=== PATIENT | female | born 1955 | race Two or more races ===

== ENCOUNTER 2020-04-09 20:55 | Emergency (ER) | payer MEDICARE, OTHER ==
[~2020-04-09] VITALS: Ht 149.9 cm; Wt 63.5 kg
[2020-04-09] MEDS ORDERED: KETOROLAC TROMETH 60MG/2ML VIAL IM ONE (21:30)
[2020-04-09] MEDS ORDERED: HYDROcodone-ACET 7.5/325MG TAB PO ONE (21:30)
[2020-04-09 21:40] LABS: Urine Bacteria MANY /hpf (None Seen); Urine Blood 1+ /uL (Negative); Urine Mucus FEW (None Seen); Urine Specific Gravity 1.019 (1.001-1.035); Urine WBC 51 /hpf (0 - 5)
[2020-04-09 22:47] LABS: Basophils # (auto) 0 10 ^3/uL (0-0.2); Basophils % (auto) 0.3 % (0.0-2.0); Eosinophils # (auto) 0.1 10 ^3/uL (0-0.8); Eosinophils % (auto) 0.8 % (0.0-7.0); Hematocrit 36.4 % (36.0-46.0); Hemoglobin 12.4 g/dL (12.2-16.2); Lymphocytes # (auto) 1.1 10 ^3/uL (0.4-5.4); Lymphocytes % (auto) 12.7 % (10.0-50.0); Mean Corpuscular Hgb Conc. 34.1 g/dL (32.0-36.0); Mean Corpuscular Volume 93.8 fL (80.0-100.0); Monocytes # (auto) 1.1 10 ^3/uL (0-1.3); Monocytes % (auto) 12.6 % (0.0-12.0); Neutrophils # (auto) 6.4 10 ^3/uL (1.6-8.6); Neutrophils % (auto) 73.6 % (37.0-80.0); Red Blood Cells 3.88 10^6/uL (4.0-5.20); Red Cell Distribution Width 13.5 % (11.8-14.3); White Blood Cell 8.7 10^3/uL (4.4-10.8)
[2020-04-09 23:03] LABS: Alanine Aminotransferase 59 U/L (13-56); Amylase 28 U/L (25-115); Anion Gap 8 (5-15); Aspartate Aminotransferase 31 U/L (15-37); BUN/Creatinine Ratio 19.1; Blood Urea Nitrogen 17 mg/dL (7-18); Calcium 8.6 mg/dL (8.5-10.1); Carbon Dioxide 25 mmol/L (21-32); Chloride 103 mmol/L (98-107); GFR African American 82 mL/min; GFR Non-African American 68 mL/min; Glucose 129 mg/dL (74-106); Lipase 83 U/L (73-393); Potassium 3.5 mmol/L (3.5-5.1); Sodium 136 mmol/L (136-145)
[2020-04-09 23:05] LABS: INR 1.04 (0.9-1.15); Partial Thromboplastin Time 30.6 sec (23.0-31.2)
[2020-04-09 23:11] LABS: Alkaline Phosphatase 153 U/L (45-117); Bilirubin, Total 0.4 mg/dL (0.2-1.0); Total Protein 6.9 g/dL (6.4-8.2)
[2020-04-09 23:40] VITALS: BP 112/68
[2020-04-09] MEDS ORDERED: levoFLOXacin 250 MG TAB PO ONE (23:45)
== END 2020-04-10 00:08 | disposition home or self-care (01) ==
LOC: ER 20:57
DX: N39.0 Urinary tract infection, site not specified (principal); Z20.822 Contact with and (suspected) exposure to COVID-19
CPT/HCPCS: 36415; 71045; 80053; 81001; 82150; 83690; 83880; 84484; 85025; 85610; 85730; 86141; 87426; 93005; 96372; 99285; J1885

== ENCOUNTER 2021-07-04 04:00 | Emergency (ER) | payer MEDICARE, OTHER ==
[~2021-07-04] VITALS: Ht 149.9 cm; Wt 72.6 kg
[2021-07-04 05:18] LABS: Basophils # (auto) 0 10 ^3/uL (0-0.2); Basophils % (auto) 0.8 % (0.0-2.0); Eosinophils # (auto) 0.1 10 ^3/uL (0-0.8); Eosinophils % (auto) 2.1 % (0.0-7.0); Hematocrit 41.9 % (36.0-46.0); Hemoglobin 14.3 g/dL (12.2-16.2); Lymphocytes # (auto) 1.5 10 ^3/uL (0.4-5.4); Lymphocytes % (auto) 25.7 % (10.0-50.0); Mean Corpuscular Hemoglobin 31.6 pg (28.0-32.0); Mean Corpuscular Volume 92.9 fL (80.0-100.0); Monocytes # (auto) 0.5 10 ^3/uL (0-1.3); Monocytes % (auto) 8.6 % (0.0-12.0); Neutrophils # (auto) 3.6 10 ^3/uL (1.6-8.6); Neutrophils % (auto) 62.8 % (37.0-80.0); Red Blood Cells 4.51 10^6/uL (4.0-5.20); Red Cell Distribution Width 13.7 % (11.8-14.3); White Blood Cell 5.7 10^3/uL (4.4-10.8)
[2021-07-04 05:23] LABS: Albumin 3.7 g/dL (3.4-5.0); Calcium 9.8 mg/dL (8.5-10.1); Potassium 4.4 mmol/L (3.5-5.1)
[2021-07-04 05:25] LABS: BUN/Creatinine Ratio 24.7
[2021-07-04 05:26] LABS: Bilirubin, Total 0.3 mg/dL (0.2-1.0)
[2021-07-04 05:26] LABS: Urine Amorphous Crystal FEW /hpf (None Seen); Urine Bacteria FEW /hpf (None Seen); Urine Blood Negative /uL (Negative); Urine Mucus FEW (None Seen); Urine Specific Gravity 1.017 (1.001-1.035); Urine WBC 5 /hpf (0 - 5)
[2021-07-04] MEDS ORDERED: NITR-87 PO (06:49)
[2021-07-04] MEDS ORDERED: NITROFURANTOIN 100 mg CAP PO ONE (07:00)
[2021-07-04 08:52] VITALS: BP 162/97
== END 2021-07-04 09:00 | disposition home or self-care (01) ==
LOC: ER 04:00
DX: N39.0 Urinary tract infection, site not specified (principal); F17.210 Nicotine dependence, cigarettes, uncomplicated; E03.9 Hypothyroidism, unspecified; Z90.710 Acquired absence of both cervix and uterus; Z90.89 Acquired absence of other organs; Z79.899 Other long term (current) drug therapy
CPT/HCPCS: 36415; 74176; 80053; 81001; 83690; 84484; 85025; 93005

== ENCOUNTER 2021-07-14 20:15 | Inpatient (IN) | payer OTHER ==
[~2021-07-14] VITALS: Ht 149.9 cm; Wt 65.6 kg
[~2021-07-14 20:15] MED LIST: NITR-87 PO
[2021-07-14] MEDS ORDERED: HYDROcodone-ACET 5/325MG TAB PO ONE (23:45)
[2021-07-15] MEDS ORDERED: PIPERACILLIN-TAZOB 3.375GM 100 ML IV ONE (00:30)
[2021-07-15] MEDS ORDERED: DexAMETHasone SOD PHOS 10MG/1ML VIAL INJ IV ONE (00:30)
[2021-07-15 01:06] LABS: Basophils # (auto) 0 10 ^3/uL (0-0.2); Eosinophils # (auto) 0.1 10 ^3/uL (0-0.8); Lymphocytes # (auto) 0.3 10 ^3/uL (0.4-5.4); Lymphocytes % (auto) 4.6 % (10.0-50.0); Mean Corpuscular Volume 94.4 fL (80.0-100.0); Neutrophils # (auto) 4.9 10 ^3/uL (1.6-8.6)
[2021-07-15 01:21] LABS: Albumin 3.5 g/dL (3.4-5.0); BUN/Creatinine Ratio 24.1; Basophils % (auto) 0.7 % (0.0-2.0); Calcium 8.6 mg/dL (8.5-10.1); Eosinophils % (auto) 1.3 % (0.0-7.0); Hematocrit 39.3 % (36.0-46.0); Hemoglobin 13.1 g/dL (12.2-16.2); Mean Corpuscular Hemoglobin 31.5 pg (28.0-32.0); Mean Corpuscular Hgb Conc. 33.4 g/dL (32.0-36.0); Monocytes # (auto) 0.6 10 ^3/uL (0-1.3); Monocytes % (auto) 10.1 % (0.0-12.0); Neutrophils % (auto) 83.3 % (37.0-80.0); Potassium 4.1 mmol/L (3.5-5.1); Red Blood Cells 4.16 10^6/uL (4.0-5.20); Red Cell Distribution Width 14.1 % (11.8-14.3); White Blood Cell 5.9 10^3/uL (4.4-10.8)
[2021-07-15 01:23] LABS: Bilirubin, Total 0.2 mg/dL (0.2-1.0); INR 1.05 (0.9-1.15)
[2021-07-15 01:25] LABS: CRP High Sensitivity 0.68 mg/dL (< 0.3)
[2021-07-15] MEDS ORDERED: ALBUTEROL SULF 2.5 MG/0.5ML(0.5%) NEB SOLN NEB PRN (04:45)
[2021-07-15] MEDS ORDERED: ONDANSETRON HCL 4 MG/2 ML VIAL IV PRN (04:45)
[2021-07-15] MEDS ORDERED: SODIUM CHLORIDE 0.9% 1,000 ML IV SCH (04:45)
[2021-07-15] MEDS ORDERED: MORPHINE SULFATE INJ 2 MG/ml SYRG IV PRN (04:45)
[2021-07-15 05:24] LABS: Urine WBC None Seen /hpf (0 - 5)
[2021-07-15 05:49] LABS: Urine Bacteria NONE SEEN /hpf (None Seen); Urine Blood Negative /uL (Negative); Urine Specific Gravity 1.006 (1.001-1.035)
[2021-07-15 08:55] VITALS: BP 143/85
[2021-07-15] MEDS: cefTRIAXone 1GM/50ML D5W 50 ML IV SCH (10:09)
[2021-07-15] MEDS: DexAMETHasone SOD PHOS 10MG/1ML VIAL INJ IV SCH (10:09)
[2021-07-15] MEDS: AZITHROMYCIN 500MG/ 250ML 250 ML IV SCH (10:10)
[2021-07-15] MEDS ORDERED: REMDESIVIR PER PHARMACY 0 ML IV SCH ×2 (14:30→20:00)
[2021-07-15 17:05] VITALS: BP 145/85
[2021-07-15] MEDS ORDERED: REMDESIVIR 200 MG in NS 210ml LOADING DOSE ADULT IV ONE ×2 (17:30→20:00)
[2021-07-15 17:53] VITALS: BP 112/60
[2021-07-15] MEDS: BUDESONIDE (INHALATION) 180 MCG IH IN SCH (19:26)
[2021-07-15] MEDS: ALBUTEROL SULF HFA 90MCG INH 200DOSE IN SCH (19:27)
[2021-07-15 20:00] VITALS: BP 100/60
[2021-07-15] MEDS: ENOXAPARIN SOD 40 MG/0.4 ML SYRINGE SC SCH (21:35)
[2021-07-15 22:00] VITALS: BP 100/60
[2021-07-15] MEDS ORDERED: IPRATROPIUM BROM 0.5 MG/2.5ML INH SOL NEB SCH (22:00)
[2021-07-15] MEDS ORDERED: BUDESONIDE (INHALATION) 0.5 MG/2 ML NEB NEB SCH (22:00)
[2021-07-16 05:00] VITALS: BP 118/58
[2021-07-16] MEDS: ALBUTEROL SULF HFA 90MCG INH 200DOSE IN SCH ×3 (06:48→19:29)
[2021-07-16] MEDS: BUDESONIDE (INHALATION) 180 MCG IH IN SCH ×2 (06:49→19:29)
[2021-07-16 08:00] VITALS: BP 113/58
[2021-07-16 09:27] VITALS: BP 113/58
[2021-07-16] MEDS: cefTRIAXone 1GM/50ML D5W 50 ML IV SCH (09:33)
[2021-07-16] MEDS: AZITHROMYCIN 500MG/ 250ML 250 ML IV SCH (09:33)
[2021-07-16] MEDS: ENOXAPARIN SOD 40 MG/0.4 ML SYRINGE SC SCH ×2 (09:33→22:38)
[2021-07-16] MEDS: DexAMETHasone SOD PHOS 10MG/1ML VIAL INJ IV SCH (09:33)
[2021-07-16 12:27] LABS: Basophils # (auto) 0.1 10 ^3/uL (0-0.2); Basophils % (auto) 1.2 % (0.0-2.0); Eosinophils # (auto) 0 10 ^3/uL (0-0.8); Hematocrit 37.4 % (36.0-46.0); Hemoglobin 12.5 g/dL (12.2-16.2); Lymphocytes # (auto) 0.5 10 ^3/uL (0.4-5.4); Lymphocytes % (auto) 9.4 % (10.0-50.0); Mean Corpuscular Hemoglobin 31.5 pg (28.0-32.0); Mean Corpuscular Hgb Conc. 33.4 g/dL (32.0-36.0); Mean Corpuscular Volume 94.2 fL (80.0-100.0); Monocytes # (auto) 0.4 10 ^3/uL (0-1.3); Monocytes % (auto) 8.9 % (0.0-12.0); Neutrophils % (auto) 80.5 % (37.0-80.0); Nucleated Red Blood Cells % 0.3 %; Red Blood Cells 3.97 10^6/uL (4.0-5.20); Red Cell Distribution Width 13.9 % (11.8-14.3)
[2021-07-16 12:46] LABS: Calcium 8.2 mg/dL (8.5-10.1); Potassium 4.2 mmol/L (3.5-5.1)
[2021-07-16 12:48] LABS: BUN/Creatinine Ratio 25.7
[2021-07-16 12:52] LABS: Bilirubin, Total 0.1 mg/dL (0.2-1.0); Total Protein 6.3 g/dL (6.4-8.2)
[2021-07-16 13:00] VITALS: BP 104/59
[2021-07-16] MEDS: REMDESIVIR 100mg 100 MG in SODIUM CHL 0.9% 230 ML IV SCH (16:04)
[2021-07-16 17:00] VITALS: BP 128/69
[2021-07-16] MEDS ORDERED: CALCIUM CARB 500 MG CHEW TAB PO PRN (17:00)
[2021-07-16 22:00] VITALS: BP 109/56
[2021-07-16] MEDS: PANTOPRAZOLE 40 MG/10 ML VIAL INJ IV SCH (22:37)
[2021-07-16] MEDS: SUCRALFATE 1 GM/10 ML ORAL SUSP PO SCH (22:38)
[2021-07-17 05:00] VITALS: BP 95/49
[2021-07-17] MEDS: SUCRALFATE 1 GM/10 ML ORAL SUSP PO SCH ×4 (06:22→22:31)
[2021-07-17] MEDS: ALBUTEROL SULF HFA 90MCG INH 200DOSE IN SCH ×3 (07:20→22:00)
[2021-07-17 09:00] VITALS: BP 130/55
[2021-07-17] MEDS: AZITHROMYCIN 500MG/ 250ML 250 ML IV SCH (11:14)
[2021-07-17] MEDS: DexAMETHasone SOD PHOS 10MG/1ML VIAL INJ IV SCH (11:14)
[2021-07-17] MEDS: cefTRIAXone 1GM/50ML D5W 50 ML IV SCH (11:14)
[2021-07-17] MEDS: PANTOPRAZOLE 40 MG/10 ML VIAL INJ IV SCH ×2 (11:14→22:32)
[2021-07-17] MEDS: ENOXAPARIN SOD 40 MG/0.4 ML SYRINGE SC SCH ×2 (11:15→22:32)
[2021-07-17 13:00] VITALS: BP 114/75
[2021-07-17] MEDS: REMDESIVIR 100mg 100 MG in SODIUM CHL 0.9% 230 ML IV SCH (14:06)
[2021-07-17 17:00] VITALS: BP 117/60
[2021-07-17 22:00] VITALS: BP 133/77
[2021-07-17] MEDS: BUDESONIDE (INHALATION) 180 MCG IH IN SCH (22:00)
[2021-07-18 05:00] VITALS: BP 109/49
[2021-07-18] MEDS: SUCRALFATE 1 GM/10 ML ORAL SUSP PO SCH ×2 (06:23→11:00)
[2021-07-18] MEDS: ALBUTEROL SULF HFA 90MCG INH 200DOSE IN SCH (06:51)
[2021-07-18] MEDS: BUDESONIDE (INHALATION) 180 MCG IH IN SCH (06:51)
[2021-07-18 09:07] VITALS: BP 120/55
[2021-07-18] MEDS: cefTRIAXone 1GM/50ML D5W 50 ML IV SCH (09:12)
[2021-07-18] MEDS: AZITHROMYCIN 500MG/ 250ML 250 ML IV SCH (10:00)
[2021-07-18 10:16] VITALS: BP 120/55
[2021-07-18] MEDS: DexAMETHasone SOD PHOS 10MG/1ML VIAL INJ IV SCH (10:58)
[2021-07-18] MEDS: PANTOPRAZOLE 40 MG/10 ML VIAL INJ IV SCH (10:58)
[2021-07-18] MEDS: ENOXAPARIN SOD 40 MG/0.4 ML SYRINGE SC SCH (10:59)
[2021-07-18 13:00] VITALS: BP 125/69
[2021-07-18] MEDS ORDERED: AZIT250T PO (15:36)
[2021-07-18] MEDS ORDERED: ALBUAER3 IN (15:36)
[2021-07-18 16:40] VITALS: BP 125/125
[2021-07-18 17:06] VITALS: BP 124/63
== END 2021-07-18 18:05 | disposition home or self-care (01) | DRG 177 ==
LOC: ER 20:22 → OVERFLOW 07-15 04:45 → TELE-WESTW 07-15 08:55 → WEST WING 07-15 19:03 → TELE-WESTW 07-15 19:57
PROVIDERS: ADMIT Nurse Practitioner; ATTEND Internal Medicine
PROC: XW033E5 Introduction of Remdesivir Anti-infective into Peripheral Vein, Percutaneous Approach, New Technology Group 5 (ICD-10-PCS; principal; 2021-07-16)
DX: U07.1 COVID-19 (principal); J12.82 Pneumonia due to coronavirus disease 2019; J96.01 Acute respiratory failure with hypoxia; D68.8 Other specified coagulation defects; F17.210 Nicotine dependence, cigarettes, uncomplicated; K31.89 Other diseases of stomach and duodenum; K40.20 Bilateral inguinal hernia, without obstruction or gangrene, not specified as recurrent; K42.9 Umbilical hernia without obstruction or gangrene; I10 Essential (primary) hypertension; M54.50 Low back pain, unspecified; K44.9 Diaphragmatic hernia without obstruction or gangrene; Z85.850 Personal history of malignant neoplasm of thyroid; Z90.49 Acquired absence of other specified parts of digestive tract; Z90.710 Acquired absence of both cervix and uterus
CPT/HCPCS: 36415; 71045; 71250; 74176; 80053; 81001; 82728; 83605; 83690; 84484; 85025; 85379; 85610; 86141; 87804; 94640; 96361; 96365; 96375; C9113; G0378; J0696; J1100; J2543